=== PATIENT | female | born 1995 | race Caucasian/White ===

== ENCOUNTER → 2016-06-30 | Outpatient (CLI) | payer MEDICAID ==
[~2016-06-30] MED LIST: PNV91TAB3 PO
--- OUTSIDE RECORDS SUMMARY | 2016-06-30 15:39 | XMS REPORT | CCD ---
Author Author FRANCINE CARUSO Unknown Address [address] [address] [place], [place] [id number] Care Team Providers Care Glass Block Bender Name Role Phone [facility], DO Attphys [facility], DO Prisurg Vital Signs Unknown or Not Available. Allergies Unknown or Not Available. Procedures Procedure Code Procedure Type Date TEST URINE [id number] SNOMED CT 12/28/2015 UA ROUTINE C&S IF IND [id number] SNOMED CT 12/28/2015 ^UA WITH MICRO [id number] SNOMED CT 12/28/2015 History of Immunizations Unknown or Not Available. Problems Unknown or Not Available. Results UA ROUTINE C&S IF IND - Collect Date/Time: 12/28/2015 23:00 Test Name Code Test Result Test Units Test Ref Range COLOR YELLOW N/A NL: YELLOW APPEARANCE CLEAR N/A NL: CLEAR SPEC GRAV 1.020 N/A NL: 1.002 - 1.022 pH 7.0 N/A NL: 5 - 9 PROTEIN NEGATIVE N/A NL: NEGATIVE mg/dl GLUCOSE NEGATIVE N/A NL: NEGATIVE mg/dl KETONE NEGATIVE N/A NL: NEGATIVE mg/dl BILIRUBIN NEGATIVE N/A NL: NEGATIVE BLOOD LARGE N/A NL: NEGATIVE NITRITE NEGATIVE N/A NL: NEGATIVE LEUK SCREEN NEGATIVE N/A NL: NEGATIVE MICRO INDICATED? SEE BELOW N/A WBC/HPF NEGATIVE N/A NL: NEGATIVE RBC/HPF 0-5 N/A NL: NEGATIVE CASTS/LPF NEGATIVE N/A NL: NEGATIVE CRYSTALS NEGATIVE N/A NL: NEGATIVE MUCOUS THRDS NEGATIVE N/A NL: NEGATIVE BACTERIA NEGATIVE N/A NL: NEGATIVE EPITH CELLS NEGATIVE N/A NL: NEGATIVE TRICHOMONAS NEGATIVE N/A NL: NEGATIVE YEAST NEGATIVE N/A NL: NEGATIVE CULT SET UP? NO N/A TEST URINE - Collect Date/Time: 12/28/2015 23:00 Test Name Code Test Result Test Units Test Ref Range TEST UR 2106-3 NEGATIVE N/A Active Medications Unknown or Not Available. Medications Administered During Visit Unknown or Not Available. Encounters Encounter Diagnosis Diagnosis Code Start Date Abnormal vaginal bleeding [id number] 12/28/2015 Social History Smoking Status Code Start Date End Date Never smoker [id number] Patient Decision Aids Unknown or Not Available. Discharge Instructions You were admitted to [facility] on 12/28/2015 21:52 with a principal diagnosis of Abnormal uterine and vaginal bleeding, unspecified You had the following tests done: TEST URINE UA ROUTINE C&S IF IND You were discharged from [facility] on 12/29/2015 00:06 Should you have any questions prior to discharge, please contact a member of your healthcare team. If you have left the hospital and have any questions, please contact your primary care physician. Chief Complaint and Reason For Visit Chief Complaint Date of Onset VAG BLEEDING Function Status Unknown or Not Available. Plan of Care Unknown or Not Available. Referral/Transition of Care Unknown or Not Available.
--- NOTE | 2016-06-30 16:54 | Diagnostic Imaging Report ---
First trimester OB ultrasound. INDICATION: Dating. FINDINGS: There is a normal-appearing single intrauterine . An embryo is seen with cardiac activity at 149 beats per minute. The crown-rump length is at 7 weeks and 3 days. MERRY is 02/13/17. The right ovary appears unremarkable. The left ovary is obscured by bowel gas. The provided LMP of 04/23/16 is inaccurate. IMPRESSION: Live single intrauterine . Dictated by: Dictated on workstation # [id number]
== END ==
LOC: RAD 15:35
PROVIDERS: ATTEND Family Medicine
DX: Z34.01 Encounter for supervision of normal first pregnancy, first trimester (principal)
CPT/HCPCS: 76801

== ENCOUNTER 2016-07-31 12:42 | Emergency (ER) | payer MEDICAID, OTHER ==
[~2016-07-31] VITALS: Ht 160 cm; Wt 60.3 kg
[2016-07-31] MEDS ORDERED: PNV91TAB3 PO (13:06)
--- NOTE | 2016-07-31 13:16 | ED GU-Female ---
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 pt also reports blood when she urinated after. pt reports she is 12 weeks preg. Nursing Sepsis Screen: No Definite Risk Source: patient Exam Limitations: no limitations History of Present Illness Time seen by provider: 13:14 Initial Comments To ER with vaginal bleeding and pain that began 2 hours ago after sexual intercourse with her boyfriend. She is about 12 weeks G1 Timing/Duration: just prior to arrival Severity/Quality: mild Location: vaginal Radiation: none Activities at Onset: none Associated Symptoms: denies symptoms Allergies and Home Medications Allergies Coded Allergies: codeine (Unverified Allergy, Unknown, 07/31/16) Home Medications Pnv95/Ferrous Fumarate/FA 1 Each Tablet 1 EACH PO (Reported) Constitutional: see HPI EENTM: see HPI Respiratory: no symptoms reported Cardiovascular: no symptoms reported Genitourinary: see HPI Expected Date of Delivery: Feb 13, 2017 Musculoskeletal: no symptoms reported Skin: no symptoms reported Psychiatric/Neurological: No Symptoms Reported Endocrine: No Symptoms Reported Hematologic/Lymphatic: No Symptoms Reported Past Suytwhz-Qiiqxm-Mticwx Hx Patient Social History Alcohol Use: Denies Use Recreational Drug Use: No Smoking Status: Never a Smoker 2nd Hand Smoke Exposure: No Recent Foreign Travel: No Contact w/Someone Who Travel: No Recent Infectious Disease Expo: No Recent Hopitalizations: No Immunizations Up To Date PED Vaccines UTD: Yes Seasonal Allergies Seasonal Allergies: No Surgeries HX Surgeries: No Respiratory Hx Respiratory Disorders: No Cardiovascular Hx Cardiac Disorders: No Neurological Hx Neurological Disorders: No Reproductive System : Yes Hx : 1 Hx Para: 0 Hx Reproductive Disorders: No Genitourinary Hx Genitourinary Disorders: No Gastrointestinal Hx Gastrointestinal Disorders: No Musculoskeletal Hx Musculoskeletal Disorders: No Endocrine Hx Endocrine Disorders: No HEENT HX ENT Disorders: No Cancer Hx Cancer: No Psychosocial Hx Psychiatric Problems: No Integumentary HX Skin/Integumentary Disorder: No Blood Transfusions Hx Blood Disorders: No Physical Exam Vital Signs Vital Sign - Last 12Hours 07/31/16 12:58 Temp 98.1 Pulse 90 Resp 18 B/P 140/72 Pulse Ox 97 Capillary Refill : Less Than 3 Seconds General Appearance: WD/WN no apparent distress HEENT: PERRL/EOMI normal ENT inspection Neck: non-tender full range of motion Respiratory: no respiratory distress no accessory muscle use Gastrointestinal: non tender soft Pelvic: other (there is a small 1.5 cm in length with wound edges gaping by approximately 0.5 cm tear/laceration to the right side of the labia minora just at the inferior aspect of the clitoris. Pelvic exam unable to be performed due to the pain. This was clotted but he can't actively bleeding when I removed the clot with 4 x 4.) Neurologic/Psychiatric: alert normal mood/affect oriented x 3 Skin: normal color warm/dry Progress/Results/Core Measures Results/Orders My Orders Vital Signs/I&O Vital Sign - Last 12Hours 07/31/16 12:58 Temp 98.1 Pulse 90 Resp 18 B/P 140/72 Pulse Ox 97 Blood Pressure Mean: 94 Departure Communication Progress Notes 1316-I did discuss the case with Dr. Burch on-call for gynecology. She recommends direct pressure and ice for about 10 minutes. If This does not resolve the bleeding I will call her back and she may place a stitch. 1411-still no bleeding. We will discharged home. Impression Impression: Primary Impression: Vaginal laceration Qualified Code: S31.41XA - Laceration without foreign body of vagina and vulva , initial encounter Disposition: 01 HOME, SELF-CARE Condition: Stable Departure-Patient Inst. Decision time for Depature: 13:17 Referrals: MATT MORAELS MD (PCP/Family) Primary Care Physician SHRUTI BURCH MD Patient Instructions: Laceration Repair Add. Discharge Instructions: 1. If this begins to ooze blood again applied direct pressure and ice for 10 minutes and return to the emergency room if this does not stop 2. Follow-up with Dr. Burch tomorrow 3. All discharge instructions reviewed with patient and/or family. Voiced understanding. MAMADOU BRIDGES RESEARCH LAB ASSISTANT Jul 31, 2016 13:16
[2016-07-31 14:18] VITALS: BP 132/89
== END 2016-07-31 14:18 | disposition home or self-care (01) ==
LOC: EDUNIT# 12:42 → ER 12:43
DX: S31.41XA Laceration without foreign body of vagina and vulva, initial encounter (principal); Z3A.12 12 weeks gestation of pregnancy; X58.XXXA Exposure to other specified factors, initial encounter; Y92.013 Bedroom of single-family (private) house as the place of occurrence of the external cause; Y99.8 Other external cause status
CPT/HCPCS: 99284

== ENCOUNTER → 2016-09-23 | Outpatient (CLI) | payer MEDICAID ==
--- NOTE | 2016-09-23 15:47 | Diagnostic Imaging Report ---
INDICATION: survey. TECHNIQUE: OB sonography performed in the routine fashion. FINDINGS: A single live intrauterine fetus is seen measuring at 20 weeks 2 days in size with heart rate of 142 beats per minute. The fetus is in cephalic presentation with no evidence of previa. anatomical survey demonstrated no detectable abnormalities. Cervical length is 3.4 cm. There has been normal interval growth since the prior study of 06/30/2016. Biometrical measurements are as follows: Biparietal 4.79 cm, age 20 weeks 4 days. Head circumference 17.81 cm, age 20 weeks 2 days. Abdominal circumference 14.07 cm, age 19 weeks 4 days. Femur length 3.31 cm, age 20 weeks 3 days. Sonographic estimate age: 20 weeks 2 days. Sonographic estimated date of delivery: 02/08/2017. Estimated Weight: 322 gm (+/- 47 gm). LMP percentile: 67%. heart rate: 142 beats per minute. number: 1 of 1. IMPRESSION: Single live intrauterine fetus measuring at 20 weeks 2 days in size. There has been normal interval growth since the prior study. There was no detectable abnormality. Dictated by: Dictated on workstation # [id number]
== END ==
LOC: RAD 14:28
PROVIDERS: ATTEND Family Medicine
DX: Z36 Encounter for antenatal screening of mother (principal); Z3A.20 20 weeks gestation of pregnancy
CPT/HCPCS: 76805

== ENCOUNTER 2017-01-29 07:42 | Inpatient (IN) | payer MEDICAID ==
[2017-01-29] VITALS (60 sets, daily range): BP systolic 106–180; BP diastolic 55–101
[~2017-01-29] VITALS: Ht 157.5 cm; Wt 75.7 kg
[2017-01-29] MEDS ORDERED: NS (IVPB) 50 ML ONE (08:08)
[2017-01-29] MEDS ORDERED: OXYTOCIN/NORMAL SALINE 500 ML IV SCH ×2 (08:08→22:15)
[2017-01-29] MEDS ORDERED: AMPICILLIN 2000 MG INJECTION (IM/IV) ONE (08:08)
[2017-01-29] MEDS ORDERED: MEPIVACAINE (CARBOCAINE) 2% 50 ML VIAL INJ PRN (08:15)
[2017-01-29] MEDS ORDERED: CATHETER FLUSH 10 ML SYR IV PRN (08:15)
[2017-01-29] MEDS: D5 LR IV SOLUTION 1,000 ML IV SCH ×2 (08:30→17:59)
[2017-01-29] MEDS ORDERED: AMPICILLIN INJECTION 2,000 MG in NS (IVPB) 50 ML IV ONE (08:30)
--- NOTE | 2017-01-29 08:43 | History & Physical-OB ---
OB - Chief Complaint & HPI Date/Time Date of Admission: January 29, 2017 Time Seen by Provider: 08:25 Chief Complaint/History OB-Reason for Admission/Chief: Rupture of Membranes Hx : 1 Hx Para: 0 Expected Date of Delivery: Feb 13, 2017 Gestational Age in Weeks: 37 Gestational Age in Days: 6 Admission Nurse Assessment Rev: Yes History of Labs GBS positive at 36 weeks gestation Allergies and Home Medications Allergies Coded Allergies: codeine (Unverified Allergy, Unknown, 07/31/16) Home Medications Pnv95/Ferrous Fumarate/FA 1 Each Tablet, 1 EACH PO, (Reported) OB - History Hx of Present Care: Yes Ultrasounds: Normal mid trimester US Obstetrical Complications: None Medical Complications: None Delivery History Hx Blood Disorders: No Patient Past Medical History No chronic medical problems Social History/Family History 2nd Hand Smoke Exposure: No OB - Admission Exam Physical Exam Date Seen by Provider: Jan 29, 2017 Time Seen by Provider: 08:25 HEENT: Moist Membranes Heart: Rhythm Normal Lungs: Clear Abdomen: Gravid Cervical Dilatation: 4cm Effacement: 50% Membranes: Ruptured Amniotic Fluid: Clear Heart Rate: 140's Accelerations: Accelerations Present Short Term Variability: Present Intensity: Mild OB - Assessment/Plan/Diagnosis Assessment Assessment: rupture of membranes (37 weeks 6 days gestation) Plan Plan: Other (Labor management) Other Plan Patient desires epidural 2. GBS positive vaginal culture at 36 weeks -Ampicillin protocol MATT MORALES MD Jan 29, 2017 08:43
--- OUTSIDE RECORDS SUMMARY | 2017-01-29 08:44 | XMS REPORT ---
Author Author RODNEY JAMES [facility] Address [address] [place] [address] Care Team Providers Care Mainframe Developer Name Role Phone RODNEY JAMES Unavailable PROBLEMS Unknown Problems ALLERGIES Substance Reaction Event Type Date Status Codeine Phosphate vomiting Drug Allergy May, Active SOCIAL HISTORY No smoking Hx information available PLAN OF CARE VITAL SIGNS MEDICATIONS Unknown Medications RESULTS No Results PROCEDURES No Known procedures IMMUNIZATIONS No Known Immunizations
--- OUTSIDE RECORDS SUMMARY | 2017-01-29 08:44 | XMS REPORT ---
Author Author MALIKA MANCERA [facility] Address [address] [place] [address] Care Team Providers Care Laboratory Mechanic Helper Name Role Phone MALIKA MANCERA Unavailable PROBLEMS Unknown Problems ALLERGIES Unknown Allergies SOCIAL HISTORY No smoking Hx information available PLAN OF CARE VITAL SIGNS MEDICATIONS Unknown Medications RESULTS Name Result Date Reference Range TEST, URINE (IN HOUSE) 2016-06-07 RESULTS POSITIVE Lot # [id number] Control + Exp date PROCEDURES Procedure Date Ordered Related Diagnosis Body Site URINE TEST Jun 07, 2016 IMMUNIZATIONS No Known Immunizations
[2017-01-29 08:50] LABS: BASOPHILS % (AUTO) 0 % (0-10); EOSINOPHILS # (AUTO) 0.1 10^3/uL (0.0-0.3); EOSINOPHILS % (AUTO) 1 % (0-10); LYMPHOCYTES # (AUTO) 1.6 X 10^3 (1.0-4.0); LYMPHOCYTES % (AUTO) 15 % (12-44); MEAN CORPUSCULAR HEMOGLOBIN 31 PG (25-34); MEAN CORPUSCULAR HGB CONC 33 G/DL (32-36); MEAN CORPUSCULAR VOLUME 92 FL (80-99); MEAN PLATELET VOLUME 10.2 FL (7.4-10.4); MONOCYTES # (AUTO) 0.8 X 10^3 (0.0-1.0); MONOCYTES % (AUTO) 7 % (0-12); NEUTROPHILS # (AUTO) 8.4 X 10^3 (1.8-7.8); NEUTROPHILS % (AUTO) 77 % (42-75); PLATELET COUNT 257 10^3/uL (130-400); RED BLOOD COUNT 3.75 10^6/uL (4.35-5.85); RED CELL DISTRIBUTION WIDTH 13.2 % (10.0-14.5); WHITE BLOOD COUNT 10.8 10^3/uL (4.3-11.0)
[2017-01-29] MEDS ORDERED: LACTATED RINGERS 1,000 ML IV ONE (10:44)
[2017-01-29] MEDS ORDERED: SUFENTA 0.6MCG/ML BUPIVA 0.125 100 ML ONE (10:45)
[2017-01-29] MEDS: AMPICILLIN INJECTION 1,000 MG in NS (IVPB) 50 ML IV SCH ×3 (12:00→20:48)
[2017-01-29] MEDS: EPIDURAL (SUFENTA 0.6MCG/ML BUPIVA 0.125%) 100 ML BAG EPI SCH ×2 (12:20→20:17)
[2017-01-29] MEDS ORDERED: LACTATED RINGERS 1,000 ML IV SCH (12:24)
[2017-01-29] MEDS ORDERED: METOCLOPRAMIDE INJ 10 MG/2 ML (REGLAN) IV PRN (12:30)
[2017-01-29] MEDS ORDERED: NALOXONE 0.4 MG/ML 1 ML (NARCAN) VIAL IV PRN ×2 (12:30)
[2017-01-29] MEDS ORDERED: ONDANSETRON 4 MG/2 ML (SDV) Z0FRAN IV PRN (12:30)
[2017-01-29] MEDS ORDERED: diphenhydrAMINE 50 MG/ML INJ (BENADRYL) IV PRN (12:30)
[2017-01-29] MEDS ORDERED: PREN1TAB86 PO (13:46)
[2017-01-29] MEDS ORDERED: FERR-84 PO (13:46)
[2017-01-29] MEDS ORDERED: IBUPROFEN 600 MG (MOTRIN) TAB PO ONE (22:06)
[2017-01-29] MEDS ORDERED: TETANUS,DIPTH,PERTUSS P/F (BOOSTRIX) 0.5 ML VIAL IM ONE (22:15)
[2017-01-29] MEDS ORDERED: MEASLES,MUMPS,RUBELLA 1 EA INJ SQ ONE (22:15)
[2017-01-29] MEDS ORDERED: HYDROcodone/APAP 10 MG/325 MG (LORTAB) TAB PO PRN (22:15)
[2017-01-29] MEDS: IBUPROFEN 600 MG (MOTRIN) TAB PO SCH (22:15)
[2017-01-29] MEDS ORDERED: BENZOCAINE/MENTHOL (DERMOPLAST) 56 ML CAN TP PRN (22:15)
[2017-01-29] MEDS ORDERED: DIBUCAINE (NUPERCAINAL) 1% OINT 30 GM TOP PRN (22:15)
--- NOTE | 2017-01-29 22:15 | OB Labor & Delivery Record ---
L&D History Date of Service Date of Service: Jan 29, 2017 History Expected Date of Delivery: Feb 13, 2017 Gestational Age in Weeks: 37 Hx : 1 Hx Para: 0 Complications Events: Routine care GBS positive at 36 weeks by vaginal culture Operative Indications (Cesarea: N/A-Vaginal Delivery Intrapartal Events: None L&D Stage1 Stage One Onset of Labor - Date: Jan 29, 2017 Onset of Labor - Time: 07:15 Monitors and Tracing Monitor Mode: Internal Heart Rate: 145 Monitor Accelerations: Uniform Station: 0 [place] Operator Variability: Average (6-10) Short Term Variability: Present Presentation: Vertex Vital Signs VS - Last 72 Hours, by Label 01/29/17 01/29/17 01/29/17 01/29/17 07:49 08:00 08:30 09:00 Temp 99.4 Pulse 86 96 98 85 Resp 18 18 18 18 B/P (MAP) 146/100 151/99 137/100 131/84 O2 Delivery Room Air Room Air Room Air Room Air 01/29/17 01/29/17 01/29/17 01/29/17 09:30 10:00 10:30 11:00 Temp 97.8 Pulse 91 73 80 78 Resp 18 18 18 18 B/P (MAP) 167/91 137/73 129/87 131/59 O2 Delivery Room Air Room Air Room Air Room Air 01/29/17 01/29/17 01/29/17 01/29/17 11:15 11:30 11:45 11:58 Temp 97.7 Pulse 71 74 75 77 Resp 18 18 18 18 B/P (MAP) 121/58 124/55 135/65 139/82 O2 Delivery Room Air Room Air Room Air Room Air 01/29/17 01/29/17 01/29/17 01/29/17 12:00 12:04 12:11 12:12 Pulse 81 83 86 87 Resp 18 18 18 18 B/P (MAP) 144/81 131/84 125/83 131/89 Pulse Ox 100 100 99 O2 Delivery Room Air Room Air Room Air Room Air 01/29/17 01/29/17 01/29/17 01/29/17 12:13 12:15 12:15 12:20 Pulse 86 77 87 94 Resp 18 18 18 18 B/P (MAP) 120/77 129/75 124/70 128/82 Pulse Ox 100 99 100 100 O2 Delivery Room Air Room Air Room Air Room Air 01/29/17 01/29/17 01/29/17 01/29/17 12:30 12:45 13:00 13:15 Temp 98.8 97.7 Pulse 86 74 84 77 Resp 18 18 18 18 B/P (MAP) 120/66 120/66 135/85 127/73 Pulse Ox 99 100 100 100 O2 Delivery Room Air Room Air Room Air Room Air 01/29/17 01/29/17 01/29/17 01/29/17 13:30 13:45 14:00 14:15 Pulse 81 85 83 83 Resp 18 18 18 18 B/P (MAP) 135/68 131/61 130/72 128/73 Pulse Ox 100 100 100 100 O2 Delivery Non Rebreather Non Rebreather Non Rebreather Non Rebreather O2 Flow Rate 15.00 15.00 15.00 15.00 01/29/17 01/29/17 01/29/17 01/29/17 14:30 14:45 15:00 15:15 Temp 97.4 Pulse 72 73 75 93 Resp 18 18 18 18 B/P (MAP) 117/65 125/85 124/74 Pulse Ox 100 100 99 99 O2 Delivery Non Rebreather Non Rebreather Room Air Room Air O2 Flow Rate 15.00 15.00 01/29/17 01/29/17 01/29/17 01/29/17 15:30 15:45 16:00 16:15 Temp 98.0 Pulse 79 85 78 79 Resp 18 18 18 18 B/P (MAP) 132/85 133/80 136/88 127/81 Pulse Ox 99 100 100 98 O2 Delivery Room Air Room Air Room Air Room Air 01/29/17 01/29/17 01/29/1717 16:30 16:45 17:00 17:15 Temp 97.7 97.2 Pulse 76 77 69 74 Resp 18 18 18 18 B/P (MAP) 120/70 109/55 106/61 116/64 Pulse Ox 99 99 100 O2 Delivery Room Air Room Air Room Air Room Air 01/29/17 01/29/17 01/29/17 01/29/17 17:30 17:45 18:00 18:15 Temp 97.9 Pulse 68 92 79 86 Resp 18 18 18 B/P (MAP) 117/64 143/85 138/84 168/87 O2 Delivery Room Air Room Air Room Air Room Air 01/29/17 01/29/17 01/29/17 01/29/17 18:30 18:45 19:00 19:15 Temp 98.9 98.0 Pulse 85 83 87 89 Resp 18 18 18 18 B/P (MAP) 138/96 153/98 132/58 115/57 O2 Delivery Room Air Room Air Room Air Room Air Signs of Distress by FHT Signs of Distress no Rupture of Membranes Spontaneous Ruture of Membrane: Yes Amniotic Membrane Rupture Time: 714 Amniotic Fluid Membrane Tests: Nitrazine Positive Induction/Anesthesia Epidural Cath Placement - Time: 1212 L&D Stage2 Stage Two Stage II Date: Jan 29, 2017 Stage II Time: 21:30 Monitors and Tracing Monitor Mode: Internal Heart Rate: 145 Monitor Accelerations: Uniform Monitor Decelerations: Variable [place] Operator Variability: Average (6-10) Short Term Variability: Present Position: Left Occiput Anterior Presentation: Vertex Signs of Distress by FHT Signs of Distress no Cord Descript/Complications Cord Vessel Description: 3 Vessels Delivery Type Infant Delivery Method: Spontaneous Vaginal Anterior Shoulder: Left Episiotomy/Perineal Laceration Laceraction(s)/Extensions: Yes Episiotomy Description: Midline, 3rd degree Sutures Used: Vicryl Condition of Infant Delivery 1 minute Comment: 8 5 minute Comment: 9 Condition of Infant Condition of : Living Exam: No Observed Abnormalities Resuscitation Resuscitation: N/A - Spontaneous Resp L&D Stage3 Stage Three Stage III Date: Jan 29, 2017 Stage III Time: 21:35 Pictocin Pitocin Administration mu/min: 28 Pitocin ml/hr: 28 Pitocin Administration Comment: Pitocin started per protocol Placenta Delivery Placenta Delivery: Spontaneous Delivery Summary Summary Vaginal blood loss >500ml: No 300 Condition of Delivery Examined: Cervix Examined Post Hemorrhage: No MATT MORALES MD Jan 29, 2017 22:15
[2017-01-30] MEDS: WITCH HAZEL(TUCKS) 40 EA JAR TOP PRN (02:14)
[2017-01-30 04:30] VITALS: BP 111/64
[2017-01-30] MEDS: IBUPROFEN 600 MG (MOTRIN) TAB PO SCH ×4 (04:36→23:46)
[2017-01-30] MEDS ORDERED: CATHETER FLUSH 10 ML SYR IV SCH (06:00)
[2017-01-30 06:24] LABS: BASOPHILS % (AUTO) 0 % (0-10); EOSINOPHILS # (AUTO) 0.1 10^3/uL (0.0-0.3); EOSINOPHILS % (AUTO) 0 % (0-10); LYMPHOCYTES # (AUTO) 1.6 X 10^3 (1.0-4.0); LYMPHOCYTES % (AUTO) 8 % (12-44); MEAN CORPUSCULAR HEMOGLOBIN 31 PG (25-34); MEAN CORPUSCULAR HGB CONC 33 G/DL (32-36); MEAN CORPUSCULAR VOLUME 92 FL (80-99); MEAN PLATELET VOLUME 9.7 FL (7.4-10.4); MONOCYTES # (AUTO) 1.3 X 10^3 (0.0-1.0); MONOCYTES % (AUTO) 6 % (0-12); NEUTROPHILS % (AUTO) 86 % (42-75); PLATELET COUNT 252 10^3/uL (130-400); RED BLOOD COUNT 3.21 10^6/uL (4.35-5.85); RED CELL DISTRIBUTION WIDTH 13.1 % (10.0-14.5)
--- NOTE | 2017-01-30 07:53 | Progress Note (SOAP) ---
Subjective Date Seen by Provider: Jan 30, 2017 Time Seen by Provider: 07:10 Subjective/Events-last exam Perineum a little sore. Objective Exam Vital Signs Date Time Temp Pulse Resp B/P (MAP) Pulse Ox O2 Delivery O2 Flow Rate FiO2 01/30/17 04:30 98.0 79 18 111/64 98 01/30/17 00:04 98.5 01/29/17 23:50 110 18 122/58 01/29/17 23:35 103 18 119/57 01/29/17 23:20 98.7 113 18 121/58 01/29/17 22:35 100.7 118 18 134/80 01/29/17 22:28 121 18 155/75 01/29/17 22:26 100.6 122 18 180/85 01/29/17 22:05 116 18 141/87 01/29/17 21:54 97.8 118 18 136/93 01/29/17 21:30 122 18 166/101 Room Air 01/29/17 21:15 102 18 134/73 Non Rebreather 10.00 01/29/17 21:00 95 18 133/85 Non Rebreather 10.00 01/29/17 20:45 18 Non Rebreather 10.00 01/29/17 20:30 18 Non Rebreather 10.00 01/29/17 20:15 96 18 141/83 Non Rebreather 10.00 01/29/17 20:00 18 Non Rebreather 10.00 01/29/17 19:52 Non Rebreather 10.00 01/29/17 19:45 98.5 80 18 120/71 Room Air 01/29/17 19:30 80 18 116/64 Room Air 01/29/17 19:15 89 18 115/57 Room Air 01/29/17 19:00 98.0 87 18 132/58 Room Air 01/29/17 18:45 98.9 83 18 153/98 Room Air 01/29/17 18:30 85 18 138/96 Room Air 01/29/17 18:15 86 18 168/87 Room Air 01/29/17 18:00 79 18 138/84 Room Air 01/29/17 17:45 97.9 92 18 143/85 Room Air 01/29/17 17:30 68 18 117/64 Room Air 01/29/17 17:15 74 18 116/64 Room Air 01/29/17 17:00 97.2 69 18 106/61 100 Room Air 01/29/17 16:45 77 18 109/55 99 Room Air 01/29/17 16:30 97.7 76 18 120/70 99 Room Air 01/29/17 16:15 79 18 127/81 98 Room Air 01/29/17 16:00 98.0 78 18 136/88 100 Room Air 01/29/17 15:45 85 18 133/80 100 Room Air 01/29/17 15:30 79 18 132/85 99 Room Air 01/29/17 15:15 93 18 124/74 99 Room Air 01/29/17 15:00 75 18 125/85 99 Room Air 01/29/17 14:45 73 18 117/65 100 Non Rebreather 15.00 01/29/17 14:30 97.4 72 18 100 Non Rebreather 15.00 01/29/17 14:15 83 18 128/73 100 Non Rebreather 15.00 01/29/17 14:00 83 18 130/72 100 Non Rebreather 15.00 01/29/17 13:45 85 18 131/61 100 Non Rebreather 15.00 01/29/17 13:30 81 18 135/68 100 Non Rebreather 15.00 01/29/17 13:15 97.7 77 18 127/73 100 Room Air 01/29/17 13:00 84 18 135/85 100 Room Air 01/29/17 12:45 74 18 120/66 100 Room Air 01/29/17 12:30 98.8 86 18 120/66 99 Room Air 01/29/17 12:20 94 18 128/82 100 Room Air 01/29/17 12:15 87 18 124/70 100 Room Air 01/29/17 12:15 77 18 129/75 99 Room Air 01/29/17 12:13 86 18 120/77 100 Room Air 01/29/17 12:12 87 18 131/89 99 Room Air 01/29/17 12:11 86 18 125/83 100 Room Air 01/29/17 12:04 83 18 131/84 100 Room Air 01/29/17 12:00 81 18 144/81 Room Air 01/29/17 11:58 77 18 139/82 Room Air 01/29/17 11:45 97.7 75 18 135/65 Room Air 01/29/17 11:30 74 18 124/55 Room Air 01/29/17 11:15 71 18 121/58 Room Air 01/29/17 11:00 78 18 131/59 Room Air 01/29/17 10:30 97.8 80 18 129/87 Room Air 01/29/17 10:00 73 18 137/73 Room Air 01/29/17 09:30 91 18 167/91 Room Air 01/29/17 09:00 85 18 131/84 Room Air 01/29/17 08:30 98 18 137/100 Room Air 01/29/17 08:00 96 18 151/99 Room Air Capillary Refill : General Appearance: No Apparent Distress Cardiovascular: Regular Rate, Rhythm Gastrointestinal: soft (with uterus firm) Results Lab Laboratory Tests 01/29/17 08:30: White Blood Count 10.8, Red Blood Count 3.75L, Hemoglobin 11.5, Hematocrit 34L, Mean Corpuscular Volume 92, Mean Corpuscular Hemoglobin 31, Mean Corpuscular Hemoglobin Concent 33, Red Cell Distribution Width 13.2, Platelet Count 257, Mean Platelet Volume 10.2, Neutrophils (%) (Auto) 77H, Lymphocytes (%) (Auto) 15 , Monocytes (%) (Auto) 7, Eosinophils (%) (Auto) 1, Basophils (%) (Auto) 0, Neutrophils # (Auto) 8.4H, Lymphocytes # (Auto) 1.6, Monocytes # (Auto) 0.8, Eosinophils # (Auto) 0.1, Basophils # (Auto) 0.0 01/30/17 06:06: White Blood Count 21.0H, Red Blood Count 3.21L, Hemoglobin 9.8L, Hematocrit 30L , Mean Corpuscular Volume 92, Mean Corpuscular Hemoglobin 31, Mean Corpuscular Hemoglobin Concent 33, Red Cell Distribution Width 13.1, Platelet Count 252, Mean Platelet Volume 9.7, Neutrophils (%) (Auto) 86H, Lymphocytes (%) (Auto) 8L , Monocytes (%) (Auto) 6, Eosinophils (%) (Auto) 0, Basophils (%) (Auto) 0, Neutrophils # (Auto) 18.0H, Lymphocytes # (Auto) 1.6, Monocytes # (Auto) 1.3H, Eosinophils # (Auto) 0.1, Basophils # (Auto) 0.0 Assessment/Plan Assessment/Plan Assess & Plan/Chief Complaint 1. S/P day 1 -routine PP care orders Clinical Quality Measures DVT/VTE Risk/Contraindication: Risk Factor Score Per Nursin RFS Level Per Nursing on Admit: 1=Low/No VTE PPX MATT MORALES MD Jan 30, 2017 07:53
[2017-01-30 08:00] VITALS: BP 110/68
[2017-01-30] MEDS: DOCUSATE SODIUM 100 MG (COLACE) CAP PO SCH ×2 (08:10→21:36)
[2017-01-30] MEDS: PRENATAL VITAMIN 1 EA TAB PO SCH (08:10)
--- NOTE | 2017-01-30 10:30 | Anesthesia-Regional Post-Op ---
Regional Patient Condition Mental Status: Alert, Oriented x3 Circulation: Same as Pre-Op Headache: Absent Sensation: Full Recovery Motor Block: Absent Post Op Complications Complications None Follow Up Care/Instructions Patient Instructions None needed. Anesthesia/Patient Condition Patient is doing well, no complaints, stable vital signs, no apparent adverse anesthesia problems. No complications reported per nursing. D/C home per [facility] Criteria: No ANAY ZAMBRANO CRNA Jan 30, 2017 10:30
[2017-01-30 14:22] VITALS: BP 112/79
[2017-01-30 17:42] VITALS: BP 116/68
[2017-01-30 21:00] VITALS: BP 118/72
[2017-01-31 03:19] VITALS: BP 122/72
[2017-01-31] MEDS: IBUPROFEN 600 MG (MOTRIN) TAB PO SCH ×2 (06:00→12:37)
--- NOTE | 2017-01-31 07:59 | Discharge Summary ---
Diagnosis/Chief Complaint Date of Admission Jan 29, 2017 at 08:41 Date of Discharge January 31, 2017 Admission Diagnosis Admission Diagnosis 1. Intrauterine at 37 weeks Discharge Diagnosis 1. Intrauterine at 37 weeks 2. Anemia due to blood loss at delivery Chief Complaint/HPI Chief Complaint/HPI 21-year-old female 1 who initially presented to labor and delivery with spontaneous rupture of membranes in the morning of January 29, 2017. She was noted to be at 37 weeks gestation at that time. Discharge Summary-OBS Procedures 1. Epidural per anesthesia 2. Spontaneous vaginal delivery 3. Repair of midline episiotomy with third degree extension Discharge Physical Examination Allergies: Coded Allergies: codeine (Unverified Allergy, Unknown, 07/31/16) Vitals & I&Os Vital Sign - Last 12Hours Date Time Temp Pulse Resp B/P (MAP) Pulse Ox O2 Delivery O2 Flow Rate FiO2 01/31/17 03:19 96.6 76 18 122/72 98 Room Air 01/29/17 21:15 10.00 General Appearance: No Acute Distress Respiratory: Clear to Auscultation Cardiovascular: Regular Rate Abdominal: Soft (with uterus firm) Hospital Course patient underwent routine labor coarse. She eventually was given epidural and tolerated well. She required Pitocin augmentation up to 30 mU/m. She eventually delivered spontaneous vaginal over a midline episiotomy with a third- degree extension a term viable male. received Apgars of 8 at 1 minute and 9 at 5 minutes. See labor and delivery note for full details. Following delivery patient underwent routine care orders. She had no complications during the remainder of hospital stay. She was noted to have a hemoglobin of 9.8 in the morning of January 30, 2017. She was ambulatory and had no shortness of breath or leg pain. She was felt ready for dismissal during the morning 2016. Discharge Instructions to patient/family Please see electronic discharge instructions given to patient. Discharge Medications Reviewed and agree with Discharge Medication list on patient's Discharge Instruction sheet Clinical Quality Measures DVT/VTE Risk/Contraindication: Risk Factor Score Per Nursin RFS Level Per Nursing on Admit: 1=Low/No VTE PPX MATT MORALES MD Jan 31, 2017 07:59
[2017-01-31] MEDS ORDERED: IBUP-1773 PO (08:00)
[2017-01-31] MEDS ORDERED: HYDR-3820 PO (08:00)
--- NOTE | 2017-01-31 08:02 | Discharge Inst-Women's Service ---
Discharge Inst-Women's Serv Depart Medication/Instructions New, Converted or Re-Newed RX: RX on Chart Consults/Follow Up Additional Follow Up: Yes (with Dr Morales in 6 weeks) Activity Activity: Activity as Tolerated Driving Instructions: You May Drive Nothing Inside Vagina: No [place] (for 6 weeks) Return to The Hospital For: as below Symptoms to Report to : Bleeding Excessive, Pain Increased, Fever Over 101 Degrees F, Vaginal Discharge Foul For Any Problems or Questions: Contact Your Physician MATT MORALES MD Jan 31, 2017 08:02
[2017-01-31 09:30] VITALS: BP 118/73
[2017-01-31] MEDS: DOCUSATE SODIUM 100 MG (COLACE) CAP PO SCH (09:56)
[2017-01-31] MEDS: PRENATAL VITAMIN 1 EA TAB PO SCH (09:56)
[2017-01-31] MEDS: WITCH HAZEL(TUCKS) 40 EA JAR TOP PRN (10:01)
[2017-01-31] MEDS ORDERED: MEASLES,MUMPS,RUBELLA 1 EA INJ ONE (12:21)
[2017-01-31 12:44] VITALS: BP 119/70
[2017-01-31 13:25] VITALS: BP 119/70
== END 2017-01-31 13:25 | disposition home or self-care (01) | DRG 775 ==
LOC: WSo 07:42 → LDRP 07:43
PROVIDERS: ADMIT Family Medicine; ATTEND Family Medicine
PROC: 10E0XZZ Delivery of Products of Conception, External Approach (ICD-10-PCS; principal; 2017-01-29)
PROC: 0DQR0ZZ Repair Anal Sphincter, Open Approach (ICD-10-PCS; 2017-01-29)
PROC: 0W8NXZZ Division of Female Perineum, External Approach (ICD-10-PCS; 2017-01-29)
DX: O26.893 Other specified pregnancy related conditions, third trimester (principal); O99.820 Streptococcus B carrier state complicating pregnancy; O70.20 Third degree perineal laceration during delivery, unspecified; O99.03 Anemia complicating the puerperium; D64.9 Anemia, unspecified; Z3A.37 37 weeks gestation of pregnancy; Z37.0 Single live birth; Z23 Encounter for immunization
CPT/HCPCS: 36415; 85025; 86850; 86900; 86901; 90707; 99212

== ENCOUNTER 2020-11-25 00:02 | Outpatient (CLI) | payer BC ==
[~2020-11-25] VITALS: Ht 157.5 cm; Wt 78.8 kg
[~2020-11-25 00:02] MED LIST changes: +ACHYD1T PO; +FERR-84 PO; +IBUP-1773 PO; +PREN1TAB86 PO
[2020-11-25 00:18] VITALS: BP 137/89
[2020-11-25 00:21] VITALS: BP 137/89
[2020-11-25 00:47] LABS: BILIRUBIN,URINE NEGATIVE (NEGATIVE); CLARITY,URINE CLEAR; COLOR,URINE YELLOW; GLUCOSE, URINE (UA) TRACE (NEGATIVE); KETONES,URINE NEGATIVE (NEGATIVE); LEUKOCYTE ESTERASE ,URINE 3+ (NEGATIVE); NITRITE,URINE NEGATIVE (NEGATIVE); PROTEIN,URINE NEGATIVE (NEGATIVE)
[2020-11-25 00:59] LABS: BACTERIA,URINE TRACE /HPF; WBC,URINE 25-50 /HPF
[2020-11-25 01:00] VITALS: BP 129/77
[2020-11-25] MEDS ORDERED: CEPHALEXIN 250 MG (KEFLEX) CAP PO SCH (01:15)
[2020-11-25] MEDS ORDERED: ZOLPIDEM 5 MG (AMBIEN) TAB PO ONE (01:15)
[2020-11-25] MEDS ORDERED: LACTATED RINGERS 1,000 ML IV SCH (01:15)
[2020-11-25] MEDS ORDERED: LACTATED RINGERS 1,000 ML IV ONE (01:18)
[2020-11-25] MEDS ORDERED: CEPHALEXIN 250 MG (KEFLEX) CAP PO ONE (01:20)
[2020-11-25] MEDS ORDERED: ZOLPIDEM 5 MG (AMBIEN) TAB ONE (01:20)
[2020-11-25] MEDS: LACTATED RINGERS 1,000 ML IV SCH ×2 (02:03→05:25)
[2020-11-25 04:10] VITALS: BP 113/60
[2020-11-25] MEDS ORDERED: CEPH500T PO (06:32)
[2020-11-25 06:46] VITALS: BP 113/60
--- NOTE | 2020-11-26 08:47 | Physician Query-Final Dx ---
Clinic Account Progress/Dx Physician Query: Please give diagnosis Please include # weeks gestation Date of Service Nov 25, 2020 at 00:02 KYLEIGH URIOSTEGUI Nov 26, 2020 08:47
== END 2020-11-25 06:40 | disposition home or self-care (01) ==
LOC: WSo 00:02 → LDRP 00:02 → WSo 06:40
PROVIDERS: ATTEND Family Medicine
DX: O62.9 Abnormality of forces of labor, unspecified (principal); Z3A.33 33 weeks gestation of pregnancy
CPT/HCPCS: 81000; 87088; 96360; 96361; G0463; 99213

== ENCOUNTER 2021-01-04 06:02 | Inpatient (IN) | payer BC ==
[2021-01-04] VITALS (47 sets, daily range): BP systolic 109–157; BP diastolic 55–93
[~2021-01-04] VITALS: Ht 157.8 cm; Wt 81.6 kg
[~2021-01-04 06:02] MED LIST changes: +CEPH500T PO
[2021-01-04] MEDS ORDERED: D5 LR IV SOLUTION 1,000 ML IV SCH (06:15)
[2021-01-04] MEDS ORDERED: MINERAL OIL CONCENTRATE 99.9% 15 ML UDC TOP PRN (06:15)
--- NOTE | 2021-01-04 06:39 | History & Physical-OB ---
OB - Chief Complaint & HPI Date/Time Date of Admission: Date of Admission: Jan 04, 2021 at 06:02 Date seen by a Provider: Jan 04, 2021 Time Seen by a Provider: 06:35 Chief Complaint/History Hx : 2 Hx Para: 1 Expected Date of Delivery: Jan 08, 2021 Gestational Age in Weeks: 39 Gestational Age in Days: 3 Admission Nurse Assessment Rev: Yes History of Labs GBS negative perineal at 36 weeks. Allergies and Home Medications Allergies Coded Allergies: codeine (Unverified Allergy, Unknown, 07/31/16) Home Medications Cephalexin 500 Mg Tablet, 250 MG PO TID Prescribed by: PAO MORALES on 11/25/20 0632 Vit W-Ca,Fe,FA(<1 mg) 1 Each Tablet, 1 EACH PO DAILY, (Reported) Patient Home Medication List Home Medication List Reviewed: Yes OB - History Hx of Present Care: Yes Ultrasounds: Normal mid trimester US Obstetrical Complications: None Medical Complications: None Delivery History Hx Blood Disorders: No Adverse Rxn to Tranfusion: No Patient Past Medical History No chronic medical problems Social History/Family History 2nd Hand Smoke Exposure: No OB - Admission Exam Physical Exam HEENT: Moist Membranes Heart: Rhythm Normal Lungs: Clear Abdomen: Gravid Cervical Dilatation: 2cm Effacement: 75% Station: -3 Membranes: Ruptured (AROM) Amniotic Fluid: Clear Heart Rate: 140's Accelerations: Accelerations Present Short Term Variability: Present Program Or Project Administrator Variability: Average (6-25) Contractions on Admission: >10 Minutes Apart Intensity: Mild Serrano Scoring Tool (Modified) Dilation (cm): 1-2cm (1) Effacement (%): 51-79% (2) Descent/Station: -3 (0) Cervix Consistency: Soft (2) Cervix Position: Middle/Mid-Position (1) Add 1 point for: Each previous vaginal delivery (1) Serrano Score: 7 OB - Assessment/Plan/Diagnosis Assessment Assessment: induction of labor (at term 39w) Admission Dx 1. IUP at 39w3d Admission Status: Inpatient Order (span 2 midnights) Reason for Inpatient Admission: L&D Plan Plan: Expectant Management Induction Method: AROM Other Plan -epidural -pitocin MATT MORALES MD Jan 04, 2021 06:39
[2021-01-04] MEDS ORDERED: OXYTOCIN PRE-MIX DRIP 500 ML IV SCH ×2 (06:45→15:30)
[2021-01-04 06:52] LABS: BILIRUBIN,URINE NEGATIVE (NEGATIVE); CLARITY,URINE CLEAR; COLOR,URINE YELLOW; GLUCOSE, URINE (UA) NEGATIVE (NEGATIVE); KETONES,URINE NEGATIVE (NEGATIVE); LEUKOCYTE ESTERASE ,URINE 3+ (NEGATIVE); NITRITE,URINE NEGATIVE (NEGATIVE); PH,URINE 6.5 (5-9); PROTEIN,URINE NEGATIVE (NEGATIVE)
[2021-01-04 07:00] LABS: BACTERIA,URINE LARGE /HPF; RBC,URINE 25-50 /HPF; WBC,URINE 50-100 /HPF
[2021-01-04 07:01] LABS: TRICHOMONAS,URINE MODERATE /HPF
[2021-01-04 07:03] LABS: BASOPHILS # (AUTO) 0.1 10^3/uL (0.0-0.1); BASOPHILS % (AUTO) 1 % (0-10); EOSINOPHILS # (AUTO) 0.1 10^3/uL (0.0-0.3); EOSINOPHILS % (AUTO) 1 % (0-10); HEMATOCRIT 33 % (35-52); HEMOGLOBIN 10.7 g/dL (11.5-16.0); LYMPHOCYTES # (AUTO) 1.3 10^3/uL (1.0-4.0); LYMPHOCYTES % (AUTO) 13 % (12-44); MEAN CORPUSCULAR HEMOGLOBIN 30 pg (25-34); MEAN CORPUSCULAR HGB CONC 33 g/dL (32-36); MEAN CORPUSCULAR VOLUME 92 fL (80-99); MEAN PLATELET VOLUME 10.5 fL (9.0-12.2); MONOCYTES # (AUTO) 0.8 10^3/uL (0.0-1.0); MONOCYTES % (AUTO) 7 % (0-12); NEUTROPHILS # (AUTO) 8.3 10^3/uL (1.8-7.8); NEUTROPHILS % (AUTO) 78 % (42-75); PLATELET COUNT 222 10^3/uL (130-400); WHITE BLOOD COUNT 10.5 10^3/uL (4.3-11.0)
[2021-01-04] MEDS ORDERED: FERR240T15 PO (07:20)
[2021-01-04] MEDS ORDERED: metroNIDAZOLE 500MG/100ML IVPB 100 ML IV SCH (07:30)
[2021-01-04] MEDS ORDERED: LACTATED RINGERS 1,000 ML IV ONE ×2 (08:18→09:45)
[2021-01-04] MEDS ORDERED: fentaNYL 2 mcg/ml BUPIVA 0.125 100 ML ONE (08:18)
[2021-01-04] MEDS ORDERED: fentaNYL INJ 100 MCG/2 ML AMP ONE (09:04)
[2021-01-04] MEDS ORDERED: CATHETER FLUSH 10 ML SYR IV PRN (09:45)
[2021-01-04] MEDS ORDERED: NALOXONE 0.4 MG/ML 1 ML (NARCAN) VIAL IV PRN ×2 (09:45→15:30)
[2021-01-04] MEDS ORDERED: fentaNYL 2 mcg/ml BUPIVA 0.125 100 ML IV SCH (09:45)
[2021-01-04] MEDS ORDERED: MEPIVACAINE (CARBOCAINE) 2% 50 ML VIAL ONE (13:36)
[2021-01-04] MEDS ORDERED: CATHETER FLUSH 10 ML SYR IV SCH ×2 (14:00→22:00)
[2021-01-04] MEDS ORDERED: BENZOCAINE/MENTHOL (DERMOPLAST) 56 ML CAN TP ONE (15:17)
--- NOTE | 2021-01-04 15:27 | OB Labor & Delivery Record ---
L&D History Date of Service Date of Service: Jan 04, 2021 History Expected Date of Delivery: Jan 08, 2021 Gestational Age in Weeks: 39 Hx : 2 Hx Para: 2 Complications Events: Routine care Operative Indications (Cesarea: N/A-Vaginal Delivery Intrapartal Events: None Other Complications Positive Trich by UA L&D Stage1 Stage One Onset of Labor - Date: Jan 04, 2021 Onset of Labor - Time: 06:40 Monitors and Tracing Monitor Mode: Internal Heart Rate: 115 Monitor Decelerations: None Station: -3 Forensic Manager Variability: Average (6-10) Short Term Variability: Present Presentation: Vertex Vital Signs VS - Last 72 Hours, by Label 01/04/21 01/04/21 01/04/21 06:23 07:20 08:00 Temp 36.4 36.8 Pulse 97 88 79 Resp 18 18 18 B/P (MAP) 153/93 (113) 129/83 (98) Pulse Ox 98 97 O2 Delivery Room Air Room Air Room Air Signs of Distress by FHT Signs of Distress no Rupture of Membranes Spontaneous Ruture of Membrane: No Amniotic Membrane Rupture Time: 0637 Amniotic Membrane Fluid Desc.: Clear L&D Stage2 Stage Two Stage II Date: Jan 04, 2021 Stage II Time: 13:28 Monitors and Tracing Monitor Mode: Internal Heart Rate: 115 Monitor Accelerations: Uniform Monitor Decelerations: None Mcfp Variability: Average (6-10) Short Term Variability: Present Position: Left Occiput Anterior Presentation: Vertex Signs of Distress by FHT Signs of Distress no Cord Descript/Complications Cord Vessel Description: 3 Vessels Delivery Type Delivery Method: Spontaneous Vaginal Anterior Shoulder: Left Episiotomy/Perineal Laceration Laceraction(s)/Extensions: Yes Episiotomy Description: Midline, 4th Degree Sutures Used: Vicryl Condition of Delivery 1 minute Comment: 9 5 minute Comment: 9 Condition of Condition of Infant: Living Exam: No Observed Abnormalities Resuscitation Resuscitation: N/A - Spontaneous Resp L&D Stage3 Stage Three Stage III Date: Jan 04, 2021 Pictocin Pitocin Administration mu/min: 12 Pitocin ml/hr: 12 Pitocin Administration Comment: 1126- PITOCIN INCREASED Placenta Delivery Placenta Delivery: Spontaneous Delivery Summary Summary Estimated blood loss (mL): 250 Condition of Delivery Examined: Cervix Examined Post Hemorrhage: No Intervention Required none MATT MORALES MD Jan 04, 2021 15:27
[2021-01-04] MEDS ORDERED: BENZOCAINE/MENTHOL (DERMOPLAST) 56 ML CAN TP PRN (15:30)
[2021-01-04] MEDS ORDERED: WITCH HAZEL(TUCKS) 40 EA JAR TOP PRN (15:30)
[2021-01-04] MEDS ORDERED: TETANUS,DIPTH,PERTUSS P/F (BOOSTRIX) 0.5 ML VIAL IM ONE (15:30)
[2021-01-04] MEDS ORDERED: MEASLES,MUMPS,RUBELLA 1 EA INJ SQ ONE (15:30)
[2021-01-04] MEDS: ACETAMINOPHEN 500 MG TAB (TYLENOL) PO SCH (17:20)
[2021-01-04] MEDS: IBUPROFEN 600 MG (MOTRIN) TAB PO SCH ×2 (17:20→23:06)
[2021-01-04] MEDS: DOCUSATE SODIUM 100 MG (COLACE) CAP PO SCH (20:10)
[2021-01-04] MEDS: metroNIDAZOLE 500 MG (FLAGYL) TAB PO SCH (20:10)
[2021-01-05 05:21] VITALS: BP 129/76
[2021-01-05] MEDS: IBUPROFEN 600 MG (MOTRIN) TAB PO SCH ×3 (05:21→17:30)
[2021-01-05 06:09] LABS: BASOPHILS # (AUTO) 0.1 10^3/uL (0.0-0.1); BASOPHILS % (AUTO) 0 % (0-10); EOSINOPHILS # (AUTO) 0.1 10^3/uL (0.0-0.3); EOSINOPHILS % (AUTO) 0 % (0-10); HEMATOCRIT 33 % (35-52); HEMOGLOBIN 10.6 g/dL (11.5-16.0); LYMPHOCYTES # (AUTO) 1.7 10^3/uL (1.0-4.0); LYMPHOCYTES % (AUTO) 10 % (12-44); MEAN CORPUSCULAR HEMOGLOBIN 30 pg (25-34); MEAN CORPUSCULAR HGB CONC 32 g/dL (32-36); MEAN CORPUSCULAR VOLUME 94 fL (80-99); MEAN PLATELET VOLUME 10.1 fL (9.0-12.2); MONOCYTES # (AUTO) 0.9 10^3/uL (0.0-1.0); MONOCYTES % (AUTO) 6 % (0-12); NEUTROPHILS # (AUTO) 13.6 10^3/uL (1.8-7.8); NEUTROPHILS % (AUTO) 83 % (42-75); PLATELET COUNT 210 10^3/uL (130-400); WHITE BLOOD COUNT 16.4 10^3/uL (4.3-11.0)
--- NOTE | 2021-01-05 06:57 | Discharge Summary ---
Diagnosis/Chief Complaint Date of Admission Jan 04, 2021 at 06:02 Date of Discharge January 05, 2021 Admission Diagnosis Admission Diagnosis 1. Intrauterine at term 39 weeks Discharge Diagnosis 1. Intrauterine at term 39 weeks Chief Complaint/HPI Chief Complaint/HPI 25-year-old 2 now term 2 who initially presented to labor and delivery for induction of labor at 39 weeks gestation. Her EDC is January 08, 2021. She was noted to have uneventful care through [facility]. Her GBS status at 36 weeks was noted to be negative. Discharge Summary-OBS Procedures 1. Epidural per anesthesia 2. Spontaneous vaginal delivery 3. Repair of midline episiotomy with a fourth degree extension Discharge Physical Examination Allergies: Coded Allergies: codeine (Unverified Allergy, Unknown, 07/31/16) Vitals & I&Os Intake and Output 01/04/21 23:59 Intake Total 1400 ml Balance 1400 ml Vital Sign - Last 12Hours Date Time Temp Pulse Resp B/P (MAP) Pulse Ox O2 Delivery O2 Flow Rate FiO2 01/05/21 05:21 36.8 78 18 129/76 (93) 99 Room Air General Appearance: No Acute Distress Respiratory: Clear to Auscultation Cardiovascular: Regular Rate Abdominal: Soft (With uterus firm) Neuro: Normal Speech Hospital Course Was the Problem List Reviewed?: Yes 25-year-old female admitted to women services in the morning of January 04, 2021 for induction of labor. She was noted to be at 39 weeks 3 days gestation. She underwent amniotomy with placement of scalp electrode. Fluid was noted to be clear. She was noted shortly after this when her urine analysis came back as having trichomonas. She was started on Flagyl 500 mg twice daily IV. She required Pitocin augmentation. Epidural was placed per anesthesia with excellent pain relief. She ultimately went on to completion and delivered over a midline episiotomy with fourth degree extension a term viable male. received Apgars of 9 at 1 minute and 9 at 5 minutes. See labor and delivery note for full details. Following delivery she underwent routine care orders. She had no complications during the remainder of hospital stay. She reports no significant pain. There was no abnormal perineal bleeding. Her hemoglobin on admission was 10.7 compared to 10.6 on day of dismissal. She was eager for dismissal during the afternoon of January 05, 2021. Labs Laboratory Tests 01/05/21 05:41: White Blood Count 16.4H, Red Blood Count 3.53L, Hemoglobin 10.6L, Hematocrit 33L , Mean Corpuscular Volume 94, Mean Corpuscular Hemoglobin 30, Mean Corpuscular Hemoglobin Concent 32, Red Cell Distribution Width 14.4, Platelet Count 210, Mean Platelet Volume 10.1, Immature Granulocyte % (Auto) 1, Neutrophils (%) (Auto) 83H, Lymphocytes (%) (Auto) 10L, Monocytes (%) (Auto) 6, Eosinophils (%) (Auto) 0, Basophils (%) (Auto) 0, Neutrophils # (Auto) 13.6H, Lymphocytes # (Auto) 1.7, Monocytes # (Auto) 0.9, Eosinophils # (Auto) 0.1, Basophils # (Auto) 0.1, Immature Granulocyte # (Auto) 0.2H Discharge Instructions to patient/family Please see electronic discharge instructions given to patient. Discharge Medications Reviewed and agree with Discharge Medication list on patient's Discharge Instruction sheet MATT MORALES MD Jan 05, 2021 06:56
[2021-01-05] MEDS ORDERED: METR-145 PO (06:58)
[2021-01-05] MEDS ORDERED: IBUP-844 PO (06:58)
[2021-01-05] MEDS ORDERED: DCS100C PO (06:58)
--- NOTE | 2021-01-05 06:59 | Discharge Inst-Women's Service ---
Discharge Inst-Women's Serv Depart Medication/Instructions New, Converted or Re-Newed RX: Transmitted to Pharmacy ([facility]) Problems Reviewed?: Yes Consults/Follow Up Additional Follow Up: Yes (with Dr Morales at [facility] in 6 weeks.) Activity Driving Instructions: No Driving for 1 Week Nothing Inside Vagina: No [place] (For 6 weeks) Diet Discharge Diet: Regular Diet Return to The Hospital For: As below Symptoms to Report to : Swelling Increased, Bleeding Excessive, Constipation(Persistant), Fever Over 101 Degrees F, Vaginal Discharge Foul For Any Problems or Questions: Contact Your Physician MATT MORALES MD Jan 05, 2021 06:59
[2021-01-05 07:06] LABS: BAND NEUTROPHILS 3 %; NEUTROPHILS % (MANUAL) 80 %
[2021-01-05 07:07] LABS: LYMPHOCYTES % (MANUAL) 12 %; MONOCYTES % (MANUAL) 5 %; RBC MORPH NORMAL
[2021-01-05 08:36] VITALS: BP 119/70
[2021-01-05] MEDS: DOCUSATE SODIUM 100 MG (COLACE) CAP PO SCH (08:36)
[2021-01-05] MEDS: metroNIDAZOLE 500 MG (FLAGYL) TAB PO SCH (08:36)
[2021-01-05] MEDS: ACETAMINOPHEN 500 MG TAB (TYLENOL) PO SCH ×2 (12:12→17:30)
[2021-01-05 12:13] VITALS: BP 123/73
--- NOTE | 2021-01-05 14:09 | Anesthesia-Regional Post-Op ---
Regional Patient Condition Mental Status: Alert, Oriented x3 Circulation: Same as Pre-Op Headache: Absent Sensation: Full Recovery Motor Block: Absent Post Op Complications Complications None Follow Up Care/Instructions Patient Instructions None needed. Anesthesia/Patient Condition Patient is doing well, no complaints, stable vital signs, no apparent adverse anesthesia problems. No complications reported per nursing. CONSTANTIN AMIN CRNA Jan 05, 2021 14:09
[2021-01-05 15:52] VITALS: BP 127/70
[2021-01-05 18:34] VITALS: BP 127/70
== END 2021-01-05 18:25 | disposition home or self-care (01) | DRG 768 ==
LOC: LDRP 06:02
PROVIDERS: ADMIT Family Medicine; ATTEND Family Medicine
PROC: 10E0XZZ Delivery of Products of Conception, External Approach (ICD-10-PCS; principal; 2021-01-04)
PROC: 0DQP0ZZ Repair Rectum, Open Approach (ICD-10-PCS; 2021-01-04)
PROC: 10907ZC Drainage of Amniotic Fluid, Therapeutic from Products of Conception, Via Natural or Artificial Opening (ICD-10-PCS; 2021-01-04)
DX: O70.3 Fourth degree perineal laceration during delivery (principal); Z37.0 Single live birth; O98.82 Other maternal infectious and parasitic diseases complicating childbirth; A59.00 Urogenital trichomoniasis, unspecified; Z88.6 Allergy status to analgesic agent; Z3A.39 39 weeks gestation of pregnancy
CPT/HCPCS: 36415; 81000; 85007; 85025; 85027; 86850; 86900; 86901; 87088